=== PATIENT | male | born 1995 | race Caucasian/White ===

== ENCOUNTER 2020-08-11 06:15 | Emergency (ER) | payer MEDICAID ==
[~2020-08-11] VITALS: Ht 193 cm; Wt 131.1 kg
[2020-08-11 06:19] VITALS: BP 142/98
--- NOTE | 2020-08-11 06:19 | NUR ---
TO BED VIA WHEELCHAIR
[2020-08-11] MEDS ORDERED: IBUPROFEN 600 MG TAB PO ONE (06:25)
--- NOTE | 2020-08-11 06:28 | NUR ---
25 YR OLD MALE PRESENTED TO THE ER WITH CC OF RIGHT ANKLE PAIN. PT IS AOX4. PT STATES STEPPING IN A HOLE LAST NIGHT AROUND 9P AND STATES "TWISTING ANKLE" AND STATES 9/10 NON-RADIATING "PULSATING" PAIN. PT RIGHT ANKLE IS SLIGHTLY SWOLLEN WITH SLIGHT REDNESS. PT IS LIMITED MOBILITY OF RIGHT ANKLE. PT IS ABLE TO MOVE ALL TOES. PT HAS PULSES IN RIGHT FOOT. PT HAS CAPILLARY REFILL LESS THAN 2 SECONDS IN ALL FINGERS AND TOES. PT DENIES OTHER MEDICAL COMPLAINTS. PT IS CURRENTLY IN A WHEELCHAIR AND IS LOCKED. WILL CONTINUE TO MONITOR. HISTORY- NONE ALLERGIES- NONE
--- NOTE | 2020-08-11 06:43 | NUR ---
Xray at bedside.
--- NOTE | 2020-08-11 06:48 | NUR ---
PT FOUND AWAKE SITTING IN BED. PT STATES 9/10 RIGHT ANKLE PAIN. PT DENIES OTHER MEDICAL COMPLAINTS. PT DOES NOT APPEAR TO BE IN DISTRESS. PT HAS VISIBLE EQUAL RISE AND FALL UPON RESPIRATION. BED LOCKED IN LOWEST POSITION WITH 1 SIDE RAIL UP FOR SAFETY.
--- NOTE | 2020-08-11 07:04 | NUR ---
XRAY AT BEDSIDE.
--- NOTE | 2020-08-11 07:08 | NUR ---
CAREY WRAP APPLIED TO PT R ANKLE. +CSM
--- NOTE | 2020-08-11 07:09 | NUR ---
TRANSFER OF CARE REPORT PROVIDED TO NICK CONN.
--- NOTE | 2020-08-11 07:40 | NUR ---
EMT AT BEDSIDE GIVING CRUTCHES EDUCATION.
[2020-08-11 07:49] VITALS: BP 142/98
== END 2020-08-11 07:45 | disposition home or self-care (01) ==
LOC: MED 06:15
DX: S93.601A Unspecified sprain of right foot, initial encounter (principal); X50.1XXA Overexertion from prolonged static or awkward postures, initial encounter; Y93.89 Activity, other specified; Y92.89 Other specified places as the place of occurrence of the external cause; Y99.8 Other external cause status
CPT/HCPCS: 73630; 99283

== ENCOUNTER 2020-09-06 09:10 | Emergency (ER) | payer MEDICAID ==
[~2020-09-06] VITALS: Ht 193 cm; Wt 127.0 kg
[2020-09-06 09:18] VITALS: BP 125/80
--- NOTE | 2020-09-06 09:22 | NUR ---
PATIENT AMBULATED TO BED 05
--- NOTE | 2020-09-06 09:29 | NUR ---
25 YEAR OLD MALE COMPLAINS OF RIGHT FOOT PAIN X1 MONTH. PT STATES HE CAME TO ER WHEN IT FIRST HAPPENED BUT PAIN PERSISTS. PEDAL PULSE +3, CAP REFILL <3 SEC. PT AOX4, BREATHING EVEN AND UNLABORED, SKIN WARM AND DRY. BED IN LOWEST POSITION, LOCKED, BED RAIL UPX1. PMH - DENIES ALLERGIES - NKA
[2020-09-06] MEDS ORDERED: IBUP-2213 PO (10:41)
--- NOTE | 2020-09-06 10:52 | NUR ---
applied pérez wrap to right ankle without any issues. pt demonstrated proper use of crutches
[2020-09-06 10:59] VITALS: BP 125/80
--- NOTE | 2020-09-06 10:59 | NUR ---
Patient discharged with v/s stable. Written and verbal after care instructions about ankle sprain given and explained. Patient alert, oriented and verbalized understanding of instructions. Ambulatory with steady gait with crutches. All questions addressed prior to discharge. ID band removed. Patient advised to follow up with PMD. Rx of ibuprofen given. Patient educated on indication of medication including possible reaction and side effects. Opportunity to ask questions provided and answered.
== END 2020-09-06 10:59 | disposition home or self-care (01) ==
LOC: MED 09:10
DX: G89.29 Other chronic pain (principal); M25.571 Pain in right ankle and joints of right foot
CPT/HCPCS: 73610; 99283